=== PATIENT | male | born 1960 | race Caucasian/White ===

== ENCOUNTER 2016-12-24 12:00 | Emergency (ER) | payer BC, OTHER ==
[2016-12-24] MEDS ORDERED: LORazepam 2 MG/ML MDV IM ONE (12:20)
--- NOTE | 2016-12-24 12:27 | EDM.PDOC ---
ED HPI GENERAL MEDICAL PROBLEM - General Chief Complaint: General Stated Complaint: CHEST PRESSURE W/ACTIVITY Time Seen by Provider: 12/24/16 12:10 Source of Information: Reports: Patient History Limitations: Reports: No Limitations - History of Present Illness INITIAL COMMENTS - FREE TEXT/NARRATIVE: Pt is a 57 year old male with PMH of seasonal allergies. According to patient he claims he had his lunch yesterday around 1PM and went out to move the lawn on his riding lawn filler block inserter remover. He felt dull chest pain over the precardium with slight let jaw pain, which he claims lasted for few minutes and he came inside the house and rested and the pain went away. He did have some belching and burping asso with pain, not sure if the pain was in chest or upper abdomen.Since then he has been feeling fine. His did call the [facility] tri[facility] nurse and speak with the nurse and was recommended to go into emergency room for cardiac workup and hence he is here today. Presently patient claims he feels fine. No chest pain or chest tightness. No nausea or vomiting. No wheezing or SOB.No sweating. He claims he is anxious to be here. Onset Date: 12/23/16 Onset Time: 13:00 Location: Reports: Chest Quality: Reports: Ache Severity: Mild Improves with: Reports: None Worsens with: Reports: None Associated Symptoms: Reports: Chest Pain. Denies: Confusion, Cough, Fever/ Chills, Nausea/Vomiting, Rash, Seizure, Shortness of Breath, Syncope, Weakness - Related Data Allergies Allergy/AdvReac Type Severity Reaction Status Date / Time [facility] Allergy Chest Verified 12/24/16 13:09 Tightness ED ROS GENERAL - Review of Systems Review Of Systems: See Below Constitutional: Reports: ROS unobtainable. Denies: Fever, Chills, Night Sweats , Diaphoresis HEENT: Denies: Sinus Problem, Throat Pain, Throat Swelling Respiratory: Denies: Shortness of Breath, Wheezing, Cough, Sputum Cardiovascular: Reports: Chest Pain (yesterday at 1 PM). Denies: Blood Pressure Problem, Edema, Lightheadedness, Syncope GI/Abdominal: Denies: Abdominal Pain, Constipation, Distension, Nausea, Vomiting Musculoskeletal: Denies: Joint Pain, Joint Swelling Skin: Denies: Pruritis, Rash Neurological: Denies: Confusion, Dizziness, Headache, Numbness, Tingling Psychiatric: Reports: Anxiety. Denies: Agitation ED EXAM, GENERAL - Physical Exam Exam: See Below Exam Limited By: No Limitations General Appearance: Alert, WD/WN, No Apparent Distress Eye Exam: Bilateral Eye: EOMI, PERRL Ears: Normal External Exam, Normal Canal, Hearing Grossly Normal, Normal TMs Ear Exam: Bilateral Ear: Auricle Normal, Canal Normal, TM normal Nose: Normal Inspection, Normal Mucosa, No Blood Throat/Mouth: Normal Inspection, Normal Lips, Normal Teeth, Normal Gums, Normal Oropharynx, Normal Voice, No Airway Compromise Head: Atraumatic, Normocephalic Neck: Normal Inspection, Supple, Non-Tender, Full Range of Motion Respiratory/Chest: No Respiratory Distress, Lungs Clear, Normal Breath Sounds, No Accessory Muscle Use, Chest Non-Tender Cardiovascular: Normal Peripheral Pulses, Regular Rate, Rhythm, No Edema, No Gallop, No JVD, No Murmur, No Rub Extremities: Normal Inspection, Normal Range of Motion, Non-Tender, Normal Capillary Refill, No Pedal Edema Neurological: Alert, Oriented, CN II-XII Intact, Normal Cognition, Normal Gait, Normal Reflexes, No Motor/Sensory Deficits Psychiatric: Normal Affect, Normal Mood, Anxious EKG INTERPRETATION EKG Date: 12/24/16 Time: 12:15 Rhythm: NSR Rate (Beats/Min): 73 [place]: Normal P-Wave: Present QRS: Normal ST-T: Normal QT: Normal Course - Vital Signs Text/Narrative:: Pt has not had any Chest pain since yesterday 1PM. His vitals in the emergency room are stable other than his elevated BP of 154/104mmhg. Pt is very anxious, he does not have any history of elevated BP. His SPO2 is 98% of room air asymptomatic. He did receive ativan 1mg IV for his anxiety. His EKG is in NSR with rate of 73. His CBC, CMP and chest Xray appear normal.His troponin is elevated around 0.16 and the normal for the lab here is 0.06. His episode of chest pain was around 24 hrs ago, tried to reassure patient that might have cardiac injury even though he has been asymptomatic at this time.The pain and discomfort he had after meals yesterday could be mild dyspepsia or cardiac angina. He did receive Metoprolol 25mg orally and 4 baby aspirin.But considering his elevation of troponin, I did call [facility] and discuss patient's case scenario with Dr. Manley, Hospitalist fluorescent solution mixer. He does agree to accept patient. recommended to start patient on heparin per NON-STEMI protocol. Palvix not given at this time. Pt has been asymptomatic althrough the emergency room care. he will be transferred by ALS ambulance to [facility]. He is Hemodynamically stable at the time of transfer. Further care as per . Last Recorded V/S: Last Vital Signs Temp 98.2 F 12/24/16 12:25 Pulse 74 12/24/16 12:25 Resp BP 156/105 H 12/24/16 12:25 Pulse Ox 100 12/24/16 12:25 - Orders/Labs/Meds Orders: Active Orders 24 hr Category Date Time Status EKG Documentation Completion [RC] ASDIRECTED Care 12/24/16 12:19 Active Chest 1V Frontal [CR] Stat Exams 12/24/16 12:19 Taken INR,PT,PROTHROMBIN TIME [COAG] Stat Lab 12/24/16 12:54 Ordered PTT,PARTIAL THROMBOPLSTIN TIME [COAG] Stat Lab 12/24/16 12:54 Ordered Labs: Laboratory Tests 12/24/16 12/24/16 Range/Units 12:19 12:19 WBC 7.8 (4.0-11.0) K/uL RBC 5.12 (4.50-6.50) M/uL Hgb 17.1 (13.0-18.0) g/dL Hct 49.1 (40.0-54.0) % MCV 96 (76-96) fL MCH 33.4 H (27.0-32.0) pg MCHC 34.8 (31.0-35.0) g/dL RDW 12.6 (11.0-16.0) % Plt Count 163 (150-400) K/uL MPV 10.3 H (6.0-10.0) fL Neut % (Auto) 57.9 (45.0-70.0) % Lymph % (Auto) 30.1 (20.0-40.0) % [place] % (Auto) 9.9 (3.0-10.0) % Eos % (Auto) 1.8 (1.0-5.0) % Baso % (Auto) 0.3 (0.0-0.5) % Neut # (Auto) 4.50 (2.00-7.50) K/uL Lymph # (Auto) 2.34 (1.50-4.00) K/uL [place] # (Auto) 0.77 (0.20-0.80) K/uL Eos # (Auto) 0.14 (0.04-0.40) K/uL Baso # (Auto) 0.02 (0.02-0.10) K/uL Sodium 141 (136-145) mmol/L Potassium 4.1 (3.5-5.1) mmol/L Chloride 107 (98-107) mmol/L Carbon Dioxide 25.8 (21.0-32.0) mmol/L Anion Gap 12.3 (5.0-15.0) mmol/L BUN 16 (8-26) mg/dL Creatinine 0.99 (0.70-1.30) mg/dL Est Cr Clr Drug Dosing 76.04 mL/min Estimated GFR (MDRD) > 60 (>60) MLS/MIN BUN/Creatinine Ratio 16.2 (6-25) Glucose 105 H (74-100) mg/dL Calcium 8.5 (8.5-10.1) mg/dL Total Bilirubin 1.2 H (0.0-1.0) mg/dL AST 24 (15-37) U/L ALT 26 (12-78) U/L Alkaline Phosphatase 69 (46-116) U/L Troponin I 0.160 H* (0.000-0.060) ng/mL Total Protein 7.2 (6.4-8.2) g/dL Albumin 3.7 (3.4-5.0) g/dL Globulin 3.5 (2.2-4.2) g/dL Albumin/Globulin Ratio 1.1 (0.8-2.0) Meds: Medications Discontinued Medications Generic Name Dose Route Start Last Admin Trade Name Freq PRN Reason Stop Dose Admin Lorazepam 1 mg 12/24/16 12:20 12/24/16 12:35 Ativan IM 12/24/16 12:21 1 mg ONETIME ONE Administration Metoprolol Tartrate 25 mg 12/24/16 13:09 Lopressor PO 12/24/16 13:10 ONETIME ONE Departure - Departure Time of Disposition: 14:00 Disposition: DC/Tfer to Acute Hospital 02 Condition: Good Clinical Impression: Non-STEMI (non-ST elevated myocardial infarction) - Discharge Information Forms: ED Department Discharge - Problem List & Annotations (1) Non-STEMI (non-ST elevated myocardial infarction) SNOMED Code(s): 744349547 Code(s): I21.4 - NON-ST ELEVATION (NSTEMI) MYOCARDIAL INFARCTION Status: Acute Current Visit: Yes - Problem List Review Problem List Initiated/Reviewed/Updated: Yes - My Orders Last 24 Hours: My Active Orders 12/24/16 12:19 EKG Documentation Completion [RC] ASDIRECTED Chest 1V Frontal [CR] Stat 12/24/16 12:54 INR,PT,PROTHROMBIN TIME [COAG] Stat PTT,PARTIAL THROMBOPLSTIN TIME [COAG] Stat - Assessment/Plan Last 24 Hours: My Active Orders 12/24/16 12:19 EKG Documentation Completion [RC] ASDIRECTED Chest 1V Frontal [CR] Stat 12/24/16 12:54 INR,PT,PROTHROMBIN TIME [COAG] Stat PTT,PARTIAL THROMBOPLSTIN TIME [COAG] Stat Assessment:: Non Stemi Plan: Pt has not had any Chest pain since yesterday 1PM. His vitals in the emergency room are stable other than his elevated BP of 154/104mmhg. Pt is very anxious, he does not have any history of elevated BP. His SPO2 is 98% of room air asymptomatic. He did receive ativan 1mg IV for his anxiety. His EKG is in NSR with rate of 73. His CBC, CMP and chest Xray appear normal.PT and PTT are normal.His troponin is elevated around 0.16 and the normal for the lab here is 0.06. His episode of chest pain was around 24 hrs ago, tried to reassure patient that might have cardiac injury even though he has been asymptomatic at this time.The pain and discomfort he had after meals yesterday could be mild dyspepsia or cardiac angina. He did receive Metoprolol 25mg orally and 4 baby aspirin.But considering his elevation of troponin, I did call [facility] and discuss patient's case scenario with Dr. Manley, Hospitalist fluorescent solution mixer. He does agree to accept patient. recommended to start patient on heparin per NON-STEMI protocol. Palvix not given at this time. Pt has been asymptomatic althrough the emergency room care. he will be transferred by [facility] ambulance to [facility]. He is Hemodynamically stable at the time of transfer. Further care as per .
[2016-12-24] MEDS ORDERED: Metoprolol Tartrate 25 MG Tab PO ONE (13:09)
[2016-12-24] MEDS ORDERED: Heparin Sodium 5,000 UNITS/0.5 ML Syringe IVPUSH ONE (13:29)
[2016-12-24] MEDS ORDERED: Heparin Sodium/D5W 25,000 UNITS/500 ML BAG IV SCH (13:30)
[2016-12-24] MEDS ORDERED: Aspirin 81 MG Tab.EC PO ONE (13:46)
[2016-12-24 13:56] VITALS: BP 164/111
[2016-12-24] MEDS ORDERED: LORazepam 2 MG/ML MDV IVPUSH ONE (14:01)
--- NOTE | 2016-12-25 19:01 | CR ---
DATE OF SERVICE: 12/24/2016 CLINICAL DATA: Chest pain. AP CHEST No priors. The heart size is normal. The lungs are clear. The exam is otherwise negative. IMPRESSION: No evidence of acute intrathoracic disease. [id number] [facility]
== END 2016-12-24 14:28 ==
LOC: LB.ED 12:00
DX: I21.4 Non-ST elevation (NSTEMI) myocardial infarction (principal); F41.9 Anxiety disorder, unspecified; Z91.09 Other allergy status, other than to drugs and biological substances
CPT/HCPCS: 36415; 71010; 80053; 84484; 85025; 85610; 85730; 93005; 96365; 96372; 96375; 96376; 99285; A0425; A0429; A9270; J1644; J2060; 96374

== ENCOUNTER 2022-03-02 08:49 | Emergency (ER) | payer MEDICAID ==
[2022-03-02] MEDS ORDERED: GI Cocktail Oral Solution 30 ML PO ONE (10:44)
[2022-03-02] MEDS ORDERED: Sodium Chloride 0.9% 1,000 ML IV ONE (10:45)
[2022-03-02] MEDS ORDERED: Ketorolac 30 MG/ML SDV IVPUSH ONE (13:02)
[2022-03-02] MEDS ORDERED: Ketorolac 30 MG/ML SDV ONE (13:23)
[2022-03-02 13:44] VITALS: BP 148/85; PULSE 68
== END 2022-03-02 13:30 | disposition home or self-care (01) ==
LOC: LB.ED 08:49
DX: K80.20 Calculus of gallbladder without cholecystitis without obstruction (principal); R74.8 Abnormal levels of other serum enzymes; I25.2 Old myocardial infarction; Z88.6 Allergy status to analgesic agent; Z88.5 Allergy status to narcotic agent; Z91.048 Other nonmedicinal substance allergy status; Z79.899 Other long term (current) drug therapy; Z79.82 Long term (current) use of aspirin; Z87.891 Personal history of nicotine dependence
CPT/HCPCS: 36415; 74176; 80053; 81001; 83605; 83690; 83735; 84484; 85025; 93005; 96361; 96374; 99284-25; A9270-GY; J1885; J7030